=== PATIENT | male | born 1985 | race Caucasian/White ===

== ENCOUNTER 2020-10-22 14:24 | Emergency (ER) | payer SELFPAY ==
[2020-10-22] MEDS ORDERED: TORAdol 30 mg Injection IM ONE (14:38)
[2020-10-22] MEDS ORDERED: TORAdol 30 mg Injection ONE (14:40)
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
--- NOTE | 2020-10-22 16:09 | XRAY ---
Exam: Testicular ultrasound from 10/22/2020. Indication: 35-year-old male with questionable testicular torsion. Technique: Longitudinal and transverse sonograms were obtained of each hemiscrotum. Some color blood flow images and Doppler tracings were obtained as well. Findings: The right testicle measured 4.05 cm x 2.6 cm x 3.0 cm. It displays a uniform echogenicity without mass. Normal color blood flow and Doppler signal are seen within the right testicle. No hydrocele is seen. The head of the right epididymis measures 1.3 cm x 0.9 cm in cross section. It appears unremarkable. The left testicle measures 4.0 cm x 2.5 cm x 3.0 cm. It also reveals normal color blood flow and Doppler signal within it. There is a small focus of decreased echogenicity within the inferior portion of the left testicle measuring 0.5 cm x 0.3 cm x 0.4 cm which may relate to some focal testicular contusion. In addition, there are a couple separate peripheral hyperechoic foci within the inferior aspect of the left testicle. I'm not sure what this represents, although minimal hemorrhage cannot be excluded. The head of the left epididymis measures 1.1 cm x 1.0 cm. No abnormality is seen at this level. No significant hydrocele is seen. Impression: 1. I see no evidence of testicular mass or testicular torsion. 2. There is a small 0.5 cm x 0.3 cm x 0.4 cm hypoechoic area at the inferior aspect of the left testicle which could relate to focal testicular contusion. Consider follow-up to ensure resolution. 3. In addition, there are a couple unassociated small foci of hyperechogenicity within the peripheral aspect of the inferior pole of the left testicle. I'm not sure what this represents, but 2 small sites of hemorrhage must be considered. 4. No other abnormality is seen within either testicle or the head of either epididymis.
[2020-10-22 16:37] LABS: Appearance CLEAR (CLEAR); Bilirubin NEGATIVE (NEGATIVE); Blood NEGATIVE Ery/ul (0-5); Glucose NEGATIVE (NEGATIVE); Ketones NEGATIVE (NEGATIVE); Leukocyte Esterase NEGATIVE (NEGATIVE); Mucus SLIGHT /HPF (NEGATIVE); Nitrite NEGATIVE (NEGATIVE); Protein,Urine Dip NEGATIVE (Negative); Specific Gravity 1.017 (1.005-1.025); Urobilinogen NEGATIVE mg/dL (0-1)
[2020-10-22 17:03] VITALS: O2SAT 98
[2020-10-22 17:04] VITALS: BP 140/74; PULSE 89
[2020-10-22 22:10] LABS: CHLAMYDIA DNA NOT DETECTED (NEGATIVE); GC DNA Probe NOT DETECTED (NEGATIVE)
== END 2020-10-22 17:08 | disposition home or self-care (01) ==
LOC: ED 14:24
DX: S30.22XA Contusion of scrotum and testes, initial encounter (principal)
CPT/HCPCS: 76870; 81001; 87491; 87591; 96372; 99284; J1885